=== PATIENT | male | born 1940 | race Caucasian/White ===

== ENCOUNTER → 2024-05-07 | Outpatient (CLI) | payer MEDICARE, BC, SELFPAY ==
[2024-05-07 08:34] LABS: Basophils % (Auto) 1 % (0-2.5); Eosinophils # (Auto) 0.1 Thou/mm3 (0.0-0.5); Eosinophils % (Auto) 2 % (0-10); Hemoglobin 12.7 g/dL (13.5-16.0); Immature Granulocytes % (Auto) 0 % (0-0); Immature Granulocytes Auto 0.02 Thou/mm3 (0.00-0.00); Lymphocytes # (Auto) 1.5 Thou/mm3 (1.0-4.8); Lymphocytes % (Auto) 27 % (10-50); Mean Corpuscular HGB Conc 33.4 g/dl (31.0-37.0); Mean Corpuscular Volume 93 fL (80-100); Monocytes # (Auto) 0.5 Thou/mm3 (0.0-0.8); Monocytes % (Auto) 9 % (0-12); Neutrophils # (Auto) 3.2 Thou/mm3 (1.8-7.7); Neutrophils % (Auto) 60 % (37-80); Nucleated Red Blood Cell % 0 /100 WBC (0); Platelet Count 141 Thou/mm3 (140-440); RDW Standard Deviation 42.5 fL (35.1-43.9); White Blood Count 5.4 Thou/mm3 (3.8-10.6)
[2024-05-07 08:54] LABS: Alanine Aminotransferase 15 U/L (10-49); Albumin, Serum 3.9 gm/dL (3.4-4.8); Albumin/Globulin Ratio 1.8 (1.2-2.2); Alkaline Phosphatase 66 U/L (46-116); Anion Gap 6 (7-16); Aspartate Amino Transferase 13 U/L (0-34); BUN/Creatinine Ratio 26 Ratio (12-20); Bilirubin,Total 0.4 mg/dL (0.3-1.2); Blood Urea Nitrogen 21 mg/dL (9-23); Calcium 9.1 mg/dL (8.3-10.6); Calcium (Corrected) 9.2 mg/dL (8.5-10.1); Carbon Dioxide 26.8 mMol/L (20.0-31.0); Cardiac Risk Estimate 3.1 RATIO (4.0-6.7); Chloride 104 mMol/L (98-107); Cholesterol 150 mg/dL (132-200); Creatinine (Component) 0.8 mg/dL (0.6-1.3); Globulin 2.2 gm/dL (2.3-3.5); Glucose 87 mg/dL (74-106); HDL Cholesterol 48 mg/dL (40-60); LDL Cholesterol,Calculated 87 mg/dL (0-130); Osmolality,Calculated 275 (275-295); Potassium 4.3 mMol/L (3.4-5.1); Sodium 137 mMol/L (136-145); Thyroid Stimulating Hormone 2.09 uIU/mL (0.55-4.78); Total Protein 6.1 gm/dL (5.7-8.2); Triglycerides 76 mg/dL (30-150); eGFR > 60 See Note
[2024-05-07 11:53] LABS: Collection Type, Urine Clean Catch
[2024-05-07 12:11] LABS: Glucose Estimated Average 103 mg/dL (80-131); Hemoglobin A1C 5.2 % Hgb (4.8-6.0)
[2024-05-07 12:33] LABS: Amorphous Crystals,Urine Present (Absent); Bacteria,Urine 2+; Bilirubin,Urine Negative (Negative); Blood,Urine Trace (Negative); Calcium Oxalate Crystals,Urine 2+; Clarity,Urine Turbid (Clear/Hazy); Color,Urine Yellow (Lt Yel-Yel); Glucose, Urine Negative (Negative); Ketones,Urine Negative (Negative); Leukocyte Esterase,Urine Positive (Negative); Nitrite,Urine Negative (Negative); PH,Urine 6.5 (5.0-7.0); Protein,Urine Trace (Neg - Trace); RBC,Urine 45 /hpf (0-3); Specific Gravity,Urine 1.024 (1.001-1.035); Squamous Epithelial Cell,Urine < 1 /hpf (0-5); Urobilinogen,Urine Negative mg/dL (0.0-1.0); WBC,Urine 14 /hpf (0-5)
[2024-05-07 12:37] LABS: Culture Indicated,Urine Yes
== END | disposition home or self-care (01) ==
LOC: COPL 07:35
PROVIDERS: PCP Family Medicine; Referring Provider Nurse Practitioner Family; Visit Provider Nurse Practitioner Family
DX: Z00.00 Encounter for general adult medical examination without abnormal findings (principal); I10 Essential (primary) hypertension; E78.2 Mixed hyperlipidemia
CPT/HCPCS: 36415; 80053; 80061; 81001; 83036; 84443; 85025; 87086

== ENCOUNTER 2024-05-13 18:50 | Emergency (ER) | payer MEDICARE, BC, SELFPAY ==
[2024-05-13 19:00] VITALS: BP 203/73; PULSE 67; PULSE 76; RESP 18; TEMP 36.6; O2SAT 94; O2SAT 96; BMI 23.7
--- NOTE | 2024-05-13 19:40 | XR_ITS ---
Examination: CT lumbar spine, without contrast. 2-D sagittal reconstructions. 2-D coronal reconstructions. 3-D reconstructions. Date and time of exam:May 13, 2024 2008 hrs. Indications: Patient fell today with into the lower back, lower back pain CTDI: vol (mGy):39.4 DLP: (mGycm):1700 Technique: Multiple 1.25 mm axial sections of the spine without intravenous contrast have been obtained. 2-D sagittal and coronal reconstructions have been obtained. 3-D reconstructions have been obtained. Low dose protocols were performed. One or more of the following dose reduction techniques were used; automated exposure control, adjustment of the mA and/or KV according to patient size, use of iterative reconstruction technique. 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
--- NOTE | 2024-05-13 19:40 | XR_ITS ---
Examination: CT brain head without contrast. 2-D sagittal coronal reconstructions Date and time of exam:May 13, 20242003 hrs. Indications: Patient fell today with injury to the head, head pain Comparison: September 28, 2022 CTDI: vol (mGy):50.8 DLP: (mGycm):1001 Technique: Multiple CT axial sections of the brain have been obtained, 5 mm slice thickness. Contrast has not been administered. 2-D sagittal, coronal reconstructions have been obtained Low dose protocols were performed. One or more of the following dose reduction techniques were used; automated exposure control, adjustment of the mA and/or KV according to patient size, use of iterative reconstruction technique. Findings: No significant ventricular enlargement. Intra-axial or extra-axial hemorrhage density is not seen. No mass effect or midline shift Basal cisterns are not remarkable. Fourth ventricle is midline. Cranial vault intact. Impression: Negative for acute hemorrhage, mass effect or midline shift
--- NOTE | 2024-05-13 19:40 | XR_ITS ---
Examination: CT cervical spine without contrast 2-D sagittal reconstructions 2-D coronal reconstructions 3-D reconstructions. Exam date and time:May 13, 20242004 hrs. Indications: Patient fell backwards today with into the neck, neck pain Comparison: September 28, 2022 CTDI:vol (mGy) 66 DLP: (mGycm) 330 Technique: Multiple 2 mm axial sections of the cervical spine have been obtained. The coronal and sagittal reconstructions have been obtained. 3-D reconstructions have been obtained. Low dose protocols were performed. One or more of the following dose reduction techniques were used; automated exposure control, adjustment of the mA and/or KV according to patient size, use of iterative reconstruction technique. Findings: Axial sections demonstrate intact base of the skull. C1 exhibit satisfactory relationship to the odontoid. No acute cervical vertebral body fracture seen. Alignment posterior spinous processes satisfactory. Impression: No acute cervical fracture.
--- NOTE | 2024-05-13 19:46 | EDNOTE_ITS ---
ED General RME/HPI General Chief complaint: Fall Stated complaint: GROUND LEVEL FALL Time Seen by Provider: 05/13/24 19:33 Arrival date/time: 05/13/24 18:50 CC: Low back pain left arm pain HPI patient was changing his close, and without realizing his walker which she sits on rolled back, and he missed it and att empting to sit down and fell backwards into the shower. Patient denies LOC or LOC but is on Plavix. Patient states he has some minor pain to the left arm where he has multiple small partial-thickness abrasions. The patient is awake alert oriented to self. No other complaints at this time Related Data Home Medications ?Medication ?Instructions ?Recorded ?Confirmed sertraline 100 mg tablet 100 mg PO QDAY ##0 02/25/09 02/13/24 clopidogrel 75 mg tablet (Plavix) 75 mg PO QAM ##0 12/23/09 02/13/24 tamsulosin 0.4 mg capsule (Flomax) 0.4 mg PO QDAY ##0 12/01/17 02/13/24 dutasteride 0.5 mg capsule 0.5 mg PO QDAY 05/21/18 02/13/24 ezetimibe 10 mg tablet 10 mg PO QDAY 05/21/18 02/13/24 cholecalciferol (vitamin D3) 125 125 mcg PO QDAY 12/09/21 02/13/24 mcg (5,000 unit) tablet (Vitamin D3) ibuprofen 200 mg tablet 200 mg PO Q6H PRN Pain 12/09/21 02/13/24 propranolol 10 mg tablet 10 mg PO BID 12/09/21 02/13/24 esomeprazole magnesium 20 mg 20 mg PO QDAY 02/13/24 02/13/24 capsule,delayed release (Nexium) losartan 50 mg tablet 100 mg PO QDAY 02/13/24 02/13/24 carbidopa ER 36.25 mg-levodopa 145 1 cap PO TID 02/14/24 02/14/24 mg capsule,extended release cyanocobalamin (B12)-cobamamide sarah 02/14/24 02/14/24 5,000 mcg-100 mcg sublingual lozenge (B12) Previous Rx's ?Medication ?Instructions ?Recorded aspirin 81 mg tablet,delayed 81 mg PO QDAY #30 tabs 08/04/20 release (Adult Aspirin Regimen) Allergies Allergy/AdvReac Type Severity Reaction Status Date / Time sea food AdvReac Severe DIFF Uncoded 12/20/23 11:12 BREATHING Review of Systems Review of Systems Narrative Review of Systems: GEN: No fever, no chills, no weight loss EYES: No discharge, no visual changes, no pain HEENT: No ear pain, no congestion, no sore throat PULM: No shortness of breath, no cough, no congestion CV: No chest pain, no dyspnea on exertion, no palpitations GI: No nausea, no vomiting, no diarrhea, + pain, no constipation : No frequency, no urgency, no dysuria MUSC/SKEL: No joint pain, no back pain SKIN: No rash PSYCH: No hallucinations, no depression HEME/LYMPH: No easy bleeding or bruising tendencies NEURO: No weakness, no headache Past Medical History Past Medical History NEUROLOGIC: Negative Neurological Disorders, Cerebrovascular Accident, Transient Ischemic Attacks (TIA), Dementia, Alzheimer's Disease, Parkinson's Disease, Brain Tumor, Meningitis, Seizures, Epilepsy, Multiple Sclerosis, Cerebral Palsy, Amyotrophic Lateral Sclerosis (ALS/Lissette Gehrig's), Guillain-Weatherby Syndrome, Spina Bifida, Paralysis, Peripheral Neuropathy, Anguiano's Palsy, Subdural Hematoma, Migraine, Head Trauma, Spinal Cord Injury or Traumatic Brain Injury CARDIAC: Positive Cardiac Disorders, Angina, Coronary Artery Disease, Atherosclerotic Heart Disease, Hypercholesterolemia, Hypertension and Hypotension; Negative Myocardial Infarction, Cardiac Arrhythmia, Atrial Fibrillation, Heart Murmur, Peripheral Vascular Disease, Aneurysm, Congestive Heart Failure, Congenital Heart Disease, Rheumatic Fever, Cardiomyopathy, Edema, Pericarditis, Cellulitis, Deep Vein Thrombosis or Varicose Veins RESPIRATORY: Positive Chronic Obstructive Pulmonary Disease (COPD), Bronchitis and Pneumonia; Negative Asthma, Emphysema, Pulmonary Fibrosis, Tuberculosis, Pulmonary Embolism, Pulmonary Edema or Sleep Apnea GASTROINTESTINAL: Positive Gastrointestinal Disorders (chronic diarrhea) and Gastroesophageal Reflux Disease; Negative Hepatitis, Cirrhosis, Pancreatitis, Celiac Disease, Gall Bladder Disease, Gastrointestinal Bleed, Esophageal Varices, Santoro's Esophagus, Colitis, Ulcerative Colitis, Diverticulitis, Diverticulosis, Ulcer, Colorectal Cancer, Irritable Bowel, Crohn's Disease, Obstructive Bowel, Hiatal Hernia, Hemorrhoids or Obesity GENITOURINARY: Positive Genitourinary Disorders (wear brief for urinary incontinence) and Benign Prostatic Hyperplasia; Negative Renal Disease, Kidney Stones, Polycystic Kidney Disease, Neurogenic Bladder, Inguinal Hernia, Dialysis or Prostate Cancer REPRODUCTIVE: Negative Breast Cancer, Fibroids, Genital Herpes, Gonorrhea, Syphilis or Testicular Cancer MUSCULOSKELETAL: Positive Musculoskeletal Disorders, Muscular Dystrophy (post polio syndrome), Carpal Tunnel Syndrome, Fractures and Poliovirus; Negative Myasthenia Gravis, Marfan's Syndrome, Bone Cancer, Arthritis, Rheumatoid Arthritis, Osteoporosis, Degenerative Disk Disease, Gout, Scoliosis, Fibromyalgia, Degenerative Joint Disease or Osteomyelitis ENT: Positive Cataracts and Glaucoma; Negative Blind, Retinal Detachment, Macular Degeneration, Ear Infection, Deafness, Head Trauma or Eye Prosthesis ENDOCRINE: Negative Endocrine Disorders, Diabetes Mellitus Type 1, Diabetes Harriett itus Type 2, Hypoglycemia, Piedad's Syndrome, Van Buren's Disease, Hyperthyroidism, Hypothyroidism, Parathyroid Disease, Pituitary Disease, Systemic Lupus Erythematosus, Syndrome of Inappropriate Antidiuretic Hormone (SIADH), Adrenal Disease or Graves' Disease HEMATOLOGIC: Negative Blood Disorders, Anemia, Leukemia, Hemophilia, Thalassemia, Sickle Cell Disease or Clotting Problems PSYCHO/SOCIAL: Negative Psychiatric Problems, Schizophrenia, Recreational Drug Use, Bipolar Disorder, Depression, Anxiety, Behavior Problems, Self-Mutilation, Attention Deficit Disorder, Attention Deficit Hyperactivity Disorder, Depression, Post Traumatic Stress Disorder or Eating Disorder OTHER HISTORY: Positive Hospitalization, Falls, Blood Transfusions, Chicken Pox, Rubella (Spanish Measles) and Pertussis; Negative Autoimmune Disease, Down Syndrome, Autism, Developmental Delay, Shingles, Blood Transfusion Reaction, Anesthesia Reactions, Organ Transplant, Chemotherapy, Radiation Therapy, Hyperbaric Therapy, MRSA, VRSA, Vancomycin- Resistant Enterococci, Human Immunodeficiency Virus (HIV), Measles, Mumps, Clostridium Difficile, Cancer, Breast Cancer, Cervical Cancer, Colorectal Cancer, Lung Cancer, Ovarian Cancer, Prostate Cancer or Testicular Cancer Family History FAMILY HISTORY: Positive Family Cardiac Disorders and Family Cancer; Negative Family Psychiatric Problems, Family Respiratory Disorders, Family Gastrointestinal Problems, Family Surgery or Family Anesthesia Reaction Surgical History SURGICAL: Positive Cardiac Surgery, Coronary Stent, Cardiac Catheterization, Angiogram, Eye Surgery and Abdominal Surgery; Negative Open Heart Surgery, Coronary Artery Bypass Graft, Valve Replacement, Vascular Surgery, Pacemaker, Auto Implanted Cardiovert Defib, Carotid Endarterectomy, Endocrine Surgery, Thyroidectomy, Ear Surgery, Tympanostomy Tube, Nose Surgery, Oral Surgery, Tonsillectomy, Adenoidectomy, Cochlear Implant, Corneal Transplant, Throat Surgery, Tracheostomy, Gastric Bypass Surgery, Gastrostomy, Bowel Surgery, Nephrectomy, Transurethral Resection, Joint Replacement, Amputation, Open Reduction Internal Fixation, Arthroscopy, Neurologic Surgery, Brain Shunt, Vasectomy or Organ Transplant Social History SMOKING STATUS: Former smoker SECOND HAND EXPOSURE: Yes SUBSTANCE USE: does not use ED Exam Narrative Physical exam: [General: Frail, deconditioned, but not in any acute distress Head normocephalic, no step-offs hematomas depressions lacerations or abrasions HEENT: Eyes: Pupils are PERRLA EOMs are intact mouth pink moist membranes uvula is midline swallow symmetrical phonation is normal. No facial asymmetry nose, no epistaxis or rhinorrhea. All other subsystems of HEENT are within acceptable limits Neck is supple nontender, no JVD normal phonation swallow symmetrical Chest equal chest rise nontender to palpation Respiratory: Clear to auscultation no wheezes crackles or rubs CV: Rate rhythm is regular no murmurs rubs or clicks Abdomen is soft nontender no masses positive bowel sounds all 4 quadrants Back: No CVA tenderness no spinous process tenderness from cervical spine thoracic and lumbar spine Skin: Skin tears multiple small in a linear pattern to the volar surface of the left forearm. Minimal amount of oozing. No full-thickness lacerations. Otherwise skin is intact no petechiae rash induration ulceration or crepitus Extremities: Moving all extremity against resistance cap refill less than 2 seconds neurosensory intact Neuro: Awake alert oriented x2, person and place, Glascow coma 15 no focal deficits] Course Quality Measures none Orders Category Date Time Status CT cervical spine wo con Stat Exams 05/13/24 19:[address] head/brain wo con Stat Exams 05/13/24 19:[address] lumbar spine wo con Stat Exams 05/13/24 19:40 Completed Tet,Diphth,Pertuss(Acell)-Tdap [Boostrix Vacc] Med 05/13/24 19:40 Discontinued 0.5 ml IMI .ONCE ONE Vital Signs Vital signs: Vital Signs Temperature 97.8 F 05/13/24 19:00 Pulse Rate 76 05/13/24 19:00 Respiratory Rate 18 05/13/24 19:00 Blood Pressure 203/73 H 05/13/24 19:00 Pulse Oximetry (%) 94 L 05/13/24 19:00 Oxygen Delivery Method Nasal Cannula 05/13/24 19:00 Oxygen Flow Rate 2 05/13/24 19:00 [facility] Patient data External records reviewed:: [facility] previous records and EMS form Clinical information provided by:: patient and EMS Social determinants that could affect healthcare access:: none Patient has the following chronic illnesses:: Polio, stent placement on blood thinner How is presenting disease/condition affected by chronic disease/condition?: uneffected by Evaluation data The following diagnostics were reviewed and interpreted by me:: radiology exam(s) Lab and/or radiology exams considered but not ordered:: CT head and C-spine as interpreted by me read by radiology as negative for any acute finding quires emergent immediate intervention CT lumbar spine shows no acute bony abnormalities that require immediate or emergent intervention. Probable chronic abdominal aortic aneurysm Interpretation Summary: Patient has had no deterioration neurologic status throughout his visit the emergency room patient will be discharged home with skin tear and fall Medications Medications considered but not ordered:: None Medication administrations:: Medication Administration History Discontinued Medications Diphtheria/Tetanus/Acell Pertussis (Diphth,Pertuss(Acell),Tet Vac 0.5 Ml Vial) 0.5 ml IMi .ONCE ONE Stop: 05/13/24 19:41 None Consultations Consultation(s) initiated? (list below): No Diagnosis Differential Diagnosis ED Complaint MDM: Closed head injury neck fracture lumbar fracture Most likely diagnosis given after review of the tests above:: Low back pain contusions fall left arm abrasions Admission Indicated Admission indicated?: not indicated Explain why admission is indicated or not indicated:: Stable for outpatient follow-up Admission Request Was there a request for admission?: No Disposition Plan Disposition Plan: Discharge Discharge Attestation Discharge Attestation: The patient and all family members were given an opportunity to ask questions and understood the discharge instructions. Discharge instructions specifically effects, indications for sooner follow up or return to the emergency department, and the expected course of current diagnosis. Patient condition: Stable Medical Decision Making Differential Diagnosis Differential Diagnosis: Closed head injury neck fracture lumbar fracture Discharge Plan Plan Patient Disposition: HOME (Self Care) Patient condition on transfer: Stable Prescriptions/Referrals Prescriptions/Med Rec: No Action sertraline 100 mg Tablet 100 mg PO QDAY Qty: 0 Patient Comments: TAKE ONE TABLET BY MOUTH ONCE DAILY clopidogrel [Plavix] 75 MG tablet 75 mg PO QAM Qty: 0 tamsulosin [Flomax] 0.4 mg capsule,extended release 24hr 0.4 mg PO QDAY Qty: 0 ezetimibe 10 mg Tablet 10 mg PO QDAY dutasteride 0.5 mg Capsule 0.5 mg PO QDAY aspirin [Adult Aspirin Regimen] 81 mg tablet,delayed release (DR/EC) 81 mg PO QDAY Qty: 30 0RF propranolol 10 mg Tablet 10 mg PO BID ibuprofen 200 mg Tablet 200 mg PO Q6H PRN (Reason: Pain) cholecalciferol (vitamin D3) [Vitamin D3] 125 mcg (5,000 unit) Tablet 125 mcg PO QDAY losartan 50 mg tablet 100 mg PO QDAY esomeprazole magnesium [Nexium] 20 mg Capsule,Delayed Release(Dr/Ec) 20 mg PO QDAY B12 5,000-100 mcg Lozenge carbidopa-levodopa 36.25-145 mg Capsule, Extended Release 1 cap PO TID Rx Instructions: divide evenly over waking hours Referrals: Mir Jefferson MD [Primary Care Provider] - In 1 week Problem List Clinical Impression: Fall, Contusion of lower back, ISTAP type 3 skin tear of left forearm Patient/Caregiver Discharge Instructions Education Materials: Bruises (Contusions), Back Safety: Standing, Back Safety: Turning, ED Back Contusion Additional Instructions: Ibuprofen or Tylenol for temporary pain relief if there is a worsening of symptoms or recurrent fall return immediately to the emergency room for reevaluation. Print Language: Yakut Stand Alone Forms: Samira Award Info., Patient Portal Info Letter PA/FRANDY Supervising Physician MIRTA/FRANDY Supervising Physician: Aquilino Hutchins ENP
[2024-05-13] MEDS: DIPHTH,PERTUSS(ACELL),TET VAC 0.5 ML VIAL IMi (20:35)
[2024-05-13 20:59] VITALS: BP 177/102; PULSE 68; RESP 18; TEMP 36.1; O2SAT 99
== END 2024-05-13 20:58 | disposition home or self-care (01) ==
PROVIDERS: Emergency Provider Emergency Medicine; PCP Family Medicine
DX: S51.812A Laceration without foreign body of left forearm, initial encounter (principal); S30.0XXA Contusion of lower back and pelvis, initial encounter; M54.2 Cervicalgia; W18.2XXA Fall in (into) shower or empty bathtub, initial encounter; Z23 Encounter for immunization
CPT/HCPCS: 70450; 72125; 72131; 90471; 90715; 99284

== ENCOUNTER 2024-05-25 08:45 | Emergency (ER) | payer MEDICARE, BC, SELFPAY ==
[2024-05-25 08:51] VITALS: BP 160/79; PULSE 69; RESP 19; TEMP 36.4; O2SAT 98; BMI 24.4
[2024-05-25 08:59] VITALS: PULSE 47; RESP 18; O2SAT 98
[2024-05-25 09:00] VITALS: PULSE 55
--- NOTE | 2024-05-25 09:46 | XR_ITS ---
Examination: AP chest single view Technique one AP portable semiupright chest single view Exam date and time: May 25, 2024 0951 hours Comparison February 25, 2023 INDICATIONS: Onset chest pain today. FINDINGS: Normal heart size Lungs are clear. The osseous structures are intact IMPRESSION: No active disease
--- NOTE | 2024-05-25 09:46 | EKG_ITS ---
[facility] Test Date: 2024-05-25 Pat Name: MARIE GUZMAN Department: Room: - Gender: Male Mat Sewer: : 1940 Requested By: Elena Zuniga Order Number: [id number] Reading MD: Elena Zuniga Measurements Intervals [place] Rate: 51 P: 37 LA: 152 QRS: 8 QRSD: 129 T: 2 QT: 445 QTc: 414 Interpretive Statements SINUS BRADYCARDIA POSSIBLE RIGHT VENTRICULAR CONDUCTION DELAY [RSR (QR) IN V1/V2] PROBABLE SEPTAL MYOCARDIAL INFARCTION , OF INDETERMINATE AGE [35 ms Q WAVE IN V1/V2] POSSIBLE LATERAL MYOCARDIAL INFARCTION , OF INDETERMINATE AGE [30 ms Q WAVE IN I/aVL/V5/V6] Compared to ECG 02/13/2024 11:31:44 Right bundle-branch block no longer present Myocardial infarct finding still present /store/S0/[id number]
--- NOTE | 2024-05-25 09:47 | XR_ITS ---
Examination: CT brain head without contrast. 2-D sagittal coronal reconstructions Date and time of exam:May 25, 2024 1021 hours COMPARISON: May 13, 2024 INDICATIONS: Seizure today CTDI: vol (mGy):54.9 DLP: (mGycm):27 Technique: Multiple CT axial sections of the brain have been obtained, 5 mm slice thickness. Contrast has not been administered. 2-D sagittal, coronal reconstructions have been obtained Low dose protocols were performed. One or more of the following dose reduction techniques were used; automated exposure control, adjustment of the mA and/or KV according to patient size, use of iterative reconstruction technique. Findings: No significant ventricular enlargement. 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 No mass effect or midline shift Basal cisterns are not remarkable. Fourth ventricle is midline. Cranial vault intact. Impression: Negative for acute hemorrhage, mass effect or midline shift Old infarcts as above MRI follow-up would best assess for acute ischemic change, as clinically warranted
[2024-05-25 10:19] LABS: Basophils % (Auto) 0 % (0-2.5); Eosinophils # (Auto) 0.1 Thou/mm3 (0.0-0.5); Eosinophils % (Auto) 2 % (0-10); Hematocrit 37.8 % (41.0-53.0); Hemoglobin 12.5 g/dL (13.5-16.0); Immature Granulocytes % (Auto) 0 % (0-0); Immature Granulocytes Auto 0.02 Thou/mm3 (0.00-0.00); Lymphocytes # (Auto) 1.4 Thou/mm3 (1.0-4.8); Lymphocytes % (Auto) 19 % (10-50); Mean Corpuscular HGB Conc 33.1 g/dl (31.0-37.0); Mean Corpuscular Hemoglobin 30.5 pg (25.0-35.0); Mean Corpuscular Volume 92 fL (80-100); Monocytes # (Auto) 0.5 Thou/mm3 (0.0-0.8); Monocytes % (Auto) 7 % (0-12); Neutrophils # (Auto) 5.2 Thou/mm3 (1.8-7.7); Neutrophils % (Auto) 72 % (37-80); Nucleated Red Blood Cell % 0 /100 WBC (0); Platelet Count 139 Thou/mm3 (140-440); RDW Standard Deviation 42.8 fL (35.1-43.9); White Blood Count 7.2 Thou/mm3 (3.8-10.6)
[2024-05-25 10:32] LABS: Partial Thromboplastin Time 26.3 Seconds (22.0-36.0); Prothrombin Time 11.4 Seconds (9.0-12.2)
[2024-05-25 10:35] LABS: B-Type Natriuretic Peptide 204 pg/mL (0-100)
[2024-05-25 10:51] LABS: Alanine Aminotransferase 9 U/L (10-49); Albumin, Serum 4.1 gm/dL (3.4-4.8); Albumin/Globulin Ratio 1.8 (1.2-2.2); Alkaline Phosphatase 71 U/L (46-116); Anion Gap 6 (7-16); Aspartate Amino Transferase 18 U/L (0-34); BUN/Creatinine Ratio 21 Ratio (12-20); Bilirubin,Total 0.4 mg/dL (0.3-1.2); Blood Urea Nitrogen 17 mg/dL (9-23); Calcium 9.4 mg/dL (8.3-10.6); Calcium (Corrected) 9.4 mg/dL (8.5-10.1); Carbon Dioxide 26.5 mMol/L (20.0-31.0); Chloride 104 mMol/L (98-107); Creatinine (Component) 0.8 mg/dL (0.6-1.3); Estimated Creatinine Clearance 78.1 mL/min (>60); Globulin 2.3 gm/dL (2.3-3.5); Glucose 107 mg/dL (74-106); Lipase 29 U/L (12-53); Magnesium 1.9 mg/dL (1.6-2.6); Osmolality,Calculated 273 (275-295); Potassium 4.7 mMol/L (3.4-5.1); Sodium 136 mMol/L (136-145); Total Protein 6.4 gm/dL (5.7-8.2); Troponin I < 0.020 ng/mL (0.0-0.045); eGFR > 60 See Note
[2024-05-25 11:07] LABS: Collection Type, Urine Clean Catch
[2024-05-25 11:20] LABS: Bacteria,Urine Rare; Bilirubin,Urine Negative (Negative); Blood,Urine Negative (Negative); Color,Urine Yellow (Lt Yel-Yel); Glucose, Urine Negative (Negative); Ketones,Urine Negative (Negative); Leukocyte Esterase,Urine Positive (Negative); Nitrite,Urine Negative (Negative); PH,Urine 6.5 (5.0-7.0); Protein,Urine Trace (Neg - Trace); RBC,Urine 23 /hpf (0-3); Specific Gravity,Urine 1.023 (1.001-1.035); Squamous Epithelial Cell,Urine 1 /hpf (0-5); WBC,Urine 96 /hpf (0-5)
--- NOTE | 2024-05-25 11:40 | PD.EDSEIZ ---
ED Seizures RME/HPI General Chief Complaint: Seizure Stated Complaint: SEIZURE Arrival date/time: 05/25/24 08:45 RME / HPI RME / HPI Narrative: DR. BATES MAIN ED EVALUATION: 84 year old male with history of Parkinson's presents to the Emergency Department [facility] from [facility] with an episode of shaking lasting 2 minutes with associated weakness and one episode of vomiting prior to arrival. Symptoms are mild. On arrival patient does not appear postictal. Patient also states he has a bump on his back that he has a pending appointment with dermatology to evaluate. PMHx: Hypertension, CAD, stent placement in LAD and circumflex arteries, on blood thinner, long-standing CAD, polio, Parkinson's Social Hx: No tobacco, alcohol, or substance use. Related Data Home Medications ?Medication ?Instructions ?Recorded ?Confirmed sertraline 100 mg tablet 100 mg PO QDAY ##0 02/25/09 02/13/24 clopidogrel 75 mg tablet (Plavix) 75 mg PO QAM ##0 12/23/09 02/13/24 tamsulosin 0.4 mg capsule (Flomax) 0.4 mg PO QDAY ##0 12/01/17 02/13/24 dutasteride 0.5 mg capsule 0.5 mg PO QDAY 05/21/18 02/13/24 ezetimibe 10 mg tablet 10 mg PO QDAY 05/21/18 02/13/24 cholecalciferol (vitamin D3) 125 125 mcg PO QDAY 12/09/21 02/13/24 mcg (5,000 unit) tablet (Vitamin D3) ibuprofen 200 mg tablet 200 mg PO Q6H PRN Pain 12/09/21 02/13/24 propranolol 10 mg tablet 10 mg PO BID 12/09/21 02/13/24 esomeprazole magnesium 20 mg 20 mg PO QDAY 02/13/24 02/13/24 capsule,delayed release (Nexium) losartan 50 mg tablet 100 mg PO QDAY 02/13/24 02/13/24 carbidopa ER 36.25 mg-levodopa 145 1 cap PO TID 02/14/24 02/14/24 mg capsule,extended release cyanocobalamin (B12)-cobamamide sarah 02/14/24 02/14/24 5,000 mcg-100 mcg sublingual lozenge (B12) Previous Rx's ?Medication ?Instructions ?Recorded aspirin 81 mg tablet,delayed 81 mg PO QDAY #30 tabs 08/04/20 release (Adult Aspirin Regimen) cephalexin 500 mg capsule 500 mg PO TID #15 caps 05/25/24 Allergies Allergy/AdvReac Type Severity Reaction Status Date / Time sea food AdvReac Severe DIFF Uncoded 12/20/23 11:12 BREATHING Review of Systems Review of Systems Systems Reviewed: All systems reviewed, normal except as documented Narrative Review of Systems: GEN: No fever, no chills, no weight loss EYES: No discharge, no visual changes, no pain HEENT: No ear pain, no congestion, no sore throat PULM: No shortness of breath, no cough, no congestion CV: No chest pain, no dyspnea on exertion, no palpitations GI: No nausea, + x1 episode vomiting, no diarrhea, no pain, no constipation : No frequency, no urgency and no dysuria MUSC/SKEL: No joint pain, no back pain SKIN: No rash PSYCH: No hallucinations, no depression HEME/LYMPH: No easy bleeding or bruising tendencies NEURO: + generalized weakness, no headache, + seizure lasting (see HPI) Past Medical History Past Medical History CARDIAC: Positive Cardiac Disorders, Angina, Coronary Artery Disease, Atherosclerotic Heart Disease, Hypercholesterolemia, Hypertension and Hypotension; Negative Myocardial Infarction, Cardiac Arrhythmia, Atrial Fibrillation, Heart Murmur, Peripheral Vascular Disease, Aneurysm, Congestive Heart Failure, Congenital Heart Disease, Rheumatic Fever, Cardiomyopathy, Edema, Pericarditis, Cellulitis, Deep Vein Thrombosis or Varicose Veins RESPIRATORY: Positive Chronic Obstructive Pulmonary Disease (COPD), Bronchitis and Pneumonia; Negative Asthma, Emphysema, Pulmonary Fibrosis, Tuberculosis, Pulmonary Embolism, Pulmonary Edema or Sleep Apnea GASTROINTESTINAL: Positive Gastrointestinal Disorders and Gastroesophageal Reflux Disease GENITOURINARY: Positive Genitourinary Disorders and Benign Prostatic Hyperplasia REPRODUCTIVE: Negative Fibroids, Genital Herpes, Gonorrhea or Syphilis MUSCULOSKELETAL: Positive Musculoskeletal Disorders, Muscular Dystrophy, Carpal Tunnel Syndrome, Fractures and Poliovirus ENT: Positive Cataracts and Glaucoma; Negative Blind, Retinal Detachment, Macular Degeneration, Ear Infection, Deafness or Eye Prosthesis ENDOCRINE: Negative Endocrine Disorders, Diabetes Mellitus Type 1, Diabetes Mellitus Type 2, Hypoglycemia, Piedad's Syndrome, Dakota's Disease, Hyperthyroidism, Hypothyroidism, Parathyroid Disease, Pituitary Disease, Systemic Lupus Erythematosus, Syndrome of Inappropriate Antidiuretic Hormone (SIADH), Adrenal Disease or Graves' Disease HEMATOLOGIC: Negative Blood Disorders, Anemia, Leukemia, Hemophilia, Thalassemia, Sickle Cell Disease or Clotting Problems PSYCHO/SOCIAL: Negative Psychiatric Problems, Schizophrenia, Recreational Drug Use, Bipolar Disorder, Depression, Anxiety, Behavior Problems, Self-Mutilation, Attention Deficit Disorder, Attention Deficit Hyperactivity Disorder, Depression, Post Traumatic Stress Disorder or Eating Disorder OTHER HISTORY: Positive Hospitalization, Falls, Blood Transfusions, Chicken Pox, Rubella (Urdu Measles) and Pertussis Family History FAMILY HISTORY: Positive Family Cardiac Disorders and Family Cancer; Negative Family Psychiatric Problems, Family Respiratory Disorders, Family Gastrointestinal Problems, Family Surgery or Family Anesthesia Reaction Surgical History SURGICAL: Positive Cardiac Surgery, Coronary Stent, Cardiac Catheterization, Angiogram, Eye Surgery and Abdominal Surgery; Negative Open Heart Surgery, Coronary Artery Bypass Graft, Valve Replacement, Vascular Surgery, Pacemaker, Auto Implanted Cardiovert Defib, Carotid Endarterectomy, Endocrine Surgery, Thyroidectomy, Ear Surgery, Tympanostomy Tube, Nose Surgery, Oral Surgery, Tonsillectomy, Adenoidectomy, Cochlear Implant, Corneal Transplant, Throat Surgery, Tracheostomy, Gastric Bypass Surgery, Gastrostomy, Bowel Surgery, Nephrectomy, Transurethral Resection, Joint Replacement, Amputation, Open Reduction Internal Fixation, Arthroscopy, Neurologic Surgery, Brain Shunt or Vasectomy Social History SMOKING STATUS: Never smoker SECOND HAND EXPOSURE: Yes SUBSTANCE USE: does not use ED Exam Narrative Physical exam: GENERAL APPEARANCE: alert and oriented x 4, well-developed, well-nourished, no acute distress VITALS: All vitals were reviewed and the pulse ox is 99% on room air, which is normal according to my interpretation. HEENT: Normocephalic, atraumatic; pupils equal, round, reactive to light; EOMI; mucous membranes pink, moist; oropharynx clear NECK: Supple LUNGS: CTABL; no wheezes, no rales, no rhonchi HEART: Regular rate, regular rhythm; normal S1, S2; no murmurs ABDOMEN: non distended; normal BS; soft, no tenderness, no guarding, no rebound; no masses, no organomegaly, no hernia BACK: no CVA tenderness, 1.5 cm discoid mass midback with surrounding erythema, tenderness, thick white cell debris and purulent fluid expressed from multiple sites overlying EXTREMITIES: atraumatic; no edema NEUROLOGIC: awake; alert and oriented x4; cranial nerves II-XII grossly intact; no focal sensory or motor deficits PSYCHIATRIC: appropriate mood and affect SKIN: warm, dry, normal color; no rashes Course Quality Measures none Orders Category Date Time Status [employer] NOW Care 05/25/24 09:46 Completed EKG (ED ONLY) *Do not use* NOW Care 05/25/24 09:[address] head/brain wo con Stat Exams 05/25/24 09:47 Completed EKG (ED Only) Stat Exams 05/25/24 09:46 Draft XR chest 1V portable Stat Exams 05/25/24 09:46 Completed B-Type Natriuretic Peptide Stat Lab 05/25/24 10:05 Completed CBC Stat Lab 05/25/24 10:05 Completed Comprehensive Metabolic Panel Stat Lab 05/25/24 10:05 Completed Lipase Stat Lab 05/25/24 10:05 Completed Magnesium Stat Lab 05/25/24 10:05 Completed Partial Thromboplastin Time Stat Lab 05/25/24 10:05 Completed Prothrombin Time with INR Stat Lab 05/25/24 10:05 Completed Troponin I Stat Lab 05/25/24 10:05 Completed UA, C/S IF [Urinalysis, C/S if Indicated] Stat Lab 05/25/24 11:04 Completed Urine Culture Stat Lab 05/25/24 11:04 Completed cephALEXin [Keflex] Med 05/25/24 12:42 Discontinued 500 mg PO X1 ONE Reevaluation(s) Reevaluation #1: Patient remains clinically stable throughout the emergency department visit. Re-assessment at the time of disposition demonstrates that the patient is in no acute distress. We reviewed all the results, analysis, and treatment plans. Patient is amenable to discharge. Strict return precautions were outlined. Patient was discharged in stable condition. Time: 13:00 Vital Signs Vital signs: Vital Signs Temperature 97.5 F 05/25/24 08:51 Pulse Rate 69 05/25/24 08:51 Respiratory Rate 19 05/25/24 08:51 Blood Pressure 160/79 H 05/25/24 08:51 Pulse Oximetry (%) 98 05/25/24 08:51 Oxygen Delivery Method Room Air 05/25/24 08:51 Seizure MDM Narrative MDM Narrative:: I, Nneka Kearns, am scribing for and in the presence of Dr. Bates. Patient data External records reviewed:: [facility] previous records (Reviewed last ED visit dated 05/13/24, discharged with the following: Contusion of lower back.) and EMS form Clinical information provided by:: patient and EMS Social determinants that could affect healthcare access:: housing ([facility]) Patient has the following chronic illnesses:: Hypertension, CAD, stent placement in LAD and circumflex arteries, on blood thinner, long-standing CAD, polio. How is presenting disease/condition affected by chronic disease/condition?: uneffected by Evaluation data The following diagnostics were reviewed and interpreted by me:: lab results, radiology exam(s) and EKG tracing(s) (sinus bradycardia, rate 51, compared to EKG 02/13/24 there is no longer a right bundle branch block,) Lab and/or radiology exams considered but not ordered:: none Interpretation Summary: Procedure(s): XR chest 1V portable Accession Number(s): [id number] cc: Blair Alonso MD; Elena Bates MD; Mir Jefferson MD~ Examination: AP chest single view Technique one AP portable semiupright chest single view Exam date and time: May 25, 2024 0951 hours Comparison February 25, 2023 INDICATIONS: Onset chest pain today. FINDINGS: Normal heart size Lungs are clear. The osseous structures are intact IMPRESSION: No active disease Dictated By: Blair Alonso MD Procedure(s): CT head/brain wo con Accession Number(s): [id number] cc: Blair Alonso MD; Elena Bates MD; Mir Jefferson MD~ Examination: CT brain head without contrast. 2-D sagittal coronal reconstructions Date and time of exam:May 25, 2024 1021 hours COMPARISON: May 13, 2024 INDICATIONS: Seizure today CTDI: vol (mGy):54.9 DLP: (mGycm):27 Technique: Multiple CT axial sections of the brain have been obtained, 5 mm slice thickness. Contrast has not been administered. 2-D sagittal, coronal reconstructions have been obtained Low dose protocols were performed. One or more of the following dose reduction techniques were used; automated exposure control, adjustment of the mA and/or KV according to patient size, use of iterative reconstruction technique. Findings: No significant ventricular enlargement. 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 No mass effect or midline shift Basal cisterns are not remarkable. Fourth ventricle is midline. Cranial vault intact. Impression: Negative for acute hemorrhage, mass effect or midline shift Old infarcts as above MRI follow-up would best assess for acute ischemic change, as clinically warranted Dictated By: Blair Alonso MD Medications / Prescriptions Medications or Prescriptions considered but not ordered:: none Medication administrations:: Medication Administration History Discontinued Medications Cephalexin HCl (Cephalexin 250 Mg Capsule) 500 mg PO X1 ONE Stop: 05/25/24 12:43 Last Admin: 05/25/24 13:29 Dose: 500 mg Documented By: RUFINO see above Consultations Consultation(s) initiated? (list below): No Diagnosis Seizure Differential Diagnosis: focal seizure, generalized seizure, epileptic seizure and status epilepticus Most likely diagnosis given after review of the tests above:: UTI Tremor EIC (epidermal inclusion cyst) Infected epidermoid cyst Admission Indicated Admission indicated?: not indicated Admission Request Was there a request for admission?: No Disposition Plan Disposition Plan: Discharge Discharge Attestation Discharge Attestation: The patient and all family members were given an opportunity to ask questions and understood the discharge instructions. Discharge instructions specifically effects, indications for sooner follow up or return to the emergency department, and the expected course of current diagnosis. Patient condition: Stable Discharge Plan Plan Patient Disposition: HOME (Self Care) Prescriptions/Referrals Prescriptions/Med Rec: New cephalexin 500 mg capsule 500 mg PO TID Qty: 15 0RF No Action sertraline 100 mg Tablet 100 mg PO QDAY Qty: 0 Patient Comments: TAKE ONE TABLET BY MOUTH ONCE DAILY clopidogrel [Plavix] 75 MG tablet 75 mg PO QAM Qty: 0 tamsulosin [Flomax] 0.4 mg capsule,extended release 24hr 0.4 mg PO QDAY Qty: 0 ezetimibe 10 mg Tablet 10 mg PO QDAY dutasteride 0.5 mg Capsule 0.5 mg PO QDAY aspirin [Adult Aspirin Regimen] 81 mg tablet,delayed release (DR/EC) 81 mg PO QDAY Qty: 30 0RF propranolol 10 mg Tablet 10 mg PO BID ibuprofen 200 mg Tablet 200 mg PO Q6H PRN (Reason: Pain) cholecalciferol (vitamin D3) [Vitamin D3] 125 mcg (5,000 unit) Tablet 125 mcg PO QDAY losartan 50 mg tablet 100 mg PO QDAY esomeprazole magnesium [Nexium] 20 mg Capsule,Delayed Release(Dr/Ec) 20 mg PO QDAY B12 5,000-100 mcg Lozenge carbidopa-levodopa 36.25-145 mg Capsule, Extended Release 1 cap PO TID Rx Instructions: divide evenly over waking hours Referrals: Mir Jefferson MD [Primary Care Provider] - In 1 week Problem List Clinical Impression: UTI (urinary tract infection), Tremor, EIC (epidermal inclusion cyst), Infected epidermoid cyst Patient/Caregiver Discharge Instructions Education Materials: Epidermoid Cyst Infect Antibiotics, ED Bladder Infection, Male (Adult) Additional Instructions: Follow up with dermatology on 05/29/24 as scheduled Print Language: Sierra Leonean Stand Alone Forms: Samira Award Info., Patient Portal Info Letter
[2024-05-25 11:56] LABS: Culture Indicated,Urine Yes
[2024-05-25 11:57] LABS: Clarity,Urine Hazy (Clear/Hazy)
[2024-05-25 12:23] VITALS: BP 167/85; PULSE 56; RESP 17; TEMP 36.8; O2SAT 100
[2024-05-25] MEDS: cephALEXin 250 MG CAPSULE 500 MG PO (13:29)
[2024-05-25 13:43] VITALS: BP 130/58; PULSE 93; RESP 17; TEMP 36.6; O2SAT 99
== END 2024-05-25 13:45 | disposition home or self-care (01) ==
PROVIDERS: Emergency Provider Emergency Medicine; PCP Family Medicine
DX: N39.0 Urinary tract infection, site not specified (principal); L72.0 Epidermal cyst; R25.1 Tremor, unspecified
CPT/HCPCS: 36415; 70450; 71045; 80053; 81001; 83690; 83735; 83880; 84484; 85025; 85610; 85730; 87086; 93005; 99284; A9270